=== PATIENT | male | born 1995 | race Caucasian/White ===

== ENCOUNTER 2019-12-10 15:43 | Emergency (ER) | payer OTHER, SELFPAY ==
--- NOTE | ~2019-12-10 | XR_ITS ---
EXAMINATION: XR chest 1V portable EXAM DATE: 12/10/2019 16:41 INDICATION: Cough, shortness of breath and fever. TECHNIQUE: Frontal and lateral projections of the chest obtained and reviewed. Comparison is made to prior examination from 12/21/2018. FINDINGS: The lungs are clear. There are no pleural effusions. Cardiac silhouette is prominent but magnified on this AP technique. There is no pneumothorax suspected. The bones and soft tissues are unremarkable. IMPRESSION: No acute cardiopulmonary findings. Reviewed, dictated and finalized at location A.
[2019-12-10 15:55] VITALS: BP 128/83; PULSE 63; RESP 18; TEMP 37.1; O2SAT 99
[2019-12-10 15:58] VITALS: RESP 14
[2019-12-10 16:00] VITALS: BP 136/83; PULSE 69; RESP 16; O2SAT 99
--- NOTE | 2019-12-10 16:23 | ED.FEVER ---
HPI - Fever General Chief Complaint: Fever <Matti Simeon PA-C - Last Filed: 12/10/19 16:50> Stated Complaint: SOB, FEVER <ALYSON Adams Last Filed: 12/10/19 16:50> Time Seen by Provider: 12/10/19 16:04 <ALYSON Adams Last Filed: 12/10/19 16:50> Source: patient <Matti Simeon PA-C - Last Filed: 12/10/19 16:50> Mode of arrival: ambulatory <ALYSON Adams Last Filed: 12/10/19 16:50> Limitations: no limitations <ALYSON Adams Last Filed: 12/10/19 16:50> History of Present Illness HPI Narrative: Patient is a 23-year-old male who presents with 2 days duration of upper respiratory symptoms noting chills body aches nonproductive cough sore throat congestion rhinorrhea works at a truck stop or other individuals have been experiencing similar symptoms denies vomiting diarrhea history of tobacco abuse uses a vaporizer e-cigarette patient on arrival is in no distress has not taken anything for his symptoms <Matti Simeon PA-C - Last Filed: 12/10/19 16:50> Related Data Home Medications: Home Medications Medication Instructions Recorded Confirmed No Home Medications 12/10/19 12/10/19 <Matti Simeon PA-C - Last Filed: 12/10/19 16:50> Allergies/Adverse Reactions: Allergies Allergy/AdvReac Type Severity Reaction Status Date / Time No Known Allergies Allergy Unverified 12/10/19 15:56 <Matti Simeon PA-C - Last Filed: 12/10/19 16:50> Review of Systems Review of Systems: All systems reviewed & are unremarkable except as noted in HPI and below <Matti Simeon PA-C - Last Filed: 12/10/19 16:50> [facility] Social History Social History: Social History (Updated 12/10/19 @ 16:24 by Matti Simeon PA-C) Tobacco type: e-cigarettes/vaping Gender identity (if verbalized by the patient): Male <ALYSON Adams Last Filed: 12/10/19 16:50> Exam Narrative: Exam Narrative: GENERAL: Well-appearing, well-nourished, and in no acute distress. HEAD: Normocephalic, atraumatic. EYES: PERRLA and EOMI. ENT: Nares clear, no rhinorrhea or epistaxis. Mucous membranes moist. NECK: Supple. No adenopathy or masses. No carotid bruits or JVD CHEST: Clear to auscultation. No respiratory distress. No wheezes rales or rhonchi HEART: Regular rate and rhythm. No murmur heard. Normal peripheral pulses. EXTREMITIES: Normal range of motion. No edema. SKIN: Warm, dry, no rash. NEURO: No focal deficits. Alert and oriented x3. Cranial nerves II through XII grossly intact PSYCH: Normal mood and affect. <Matti Simeon PA-C - Last Filed: 12/10/19 16:50> Course Vital Signs Vital signs: Vital Signs Temperature 98.8 F 12/10/19 15:55 Pulse Rate 63 12/10/19 15:55 Respiratory Rate 18 12/10/19 15:55 Blood Pressure 128/83 12/10/19 15:55 Pulse Oximetry 99 12/10/19 15:55 Temperature 98.8 F 12/10/19 15:55 Pulse Rate 67 12/10/19 17:05 Respiratory Rate 23 H 12/10/19 17:05 Blood Pressure 114/70 12/10/19 17:05 Pulse Oximetry 99 12/10/19 17:05 <Matti Simeon PA-C - Last Filed: 12/10/19 16:50> Vital Signs Temperature 98.8 F 12/10/19 15:55 Pulse Rate 63 12/10/19 15:55 Respiratory Rate 18 12/10/19 15:55 Blood Pressure 128/83 12/10/19 15:55 Pulse Oximetry 99 12/10/19 15:55 Temperature 98.8 F 12/10/19 15:55 Pulse Rate 67 12/10/19 17:05 Respiratory Rate 23 H 12/10/19 17:05 Blood Pressure 114/70 12/10/19 17:05 Pulse Oximetry 99 12/10/19 17:05 <Pamela Callaway MD - Last Filed: 12/10/19 17:38> MDM - Fever MDM Narrative Medical decision making narrative: Patient in the room in no distress was tested for COVID negative chest radiograph normal vital signs advised to self quarantine for the next 14 days provided with primary care follow-up felt appropriate for outpatient reevaluation given reasons to return <ALYSON Adams L
[2019-12-10 16:34] VITALS: BP 107/78; PULSE 61; RESP 20; O2SAT 98
[2019-12-10 17:05] VITALS: BP 114/70; PULSE 67; RESP 23; O2SAT 99
[2019-12-12 15:31] LABS: SARS-CoV-2 RNA PCR Negative
== END 2019-12-10 17:06 | disposition home or self-care (01) ==
PROVIDERS: Emergency Medicine Emergency Medical Services; Emergency Provider Emergency Medicine
DX: J02.9 Acute pharyngitis, unspecified (principal); Z20.828 Contact with and (suspected) exposure to other viral communicable diseases; F17.290 Nicotine dependence, other tobacco product, uncomplicated
CPT/HCPCS: 71045; 87635; 99283; C9803; U0003